=== PATIENT | female | born 1950 | race Caucasian/White ===

== ENCOUNTER 2019-05-08 15:15 | Emergency (ER) | payer MEDICARE ==
[~2019-05-08] VITALS: Ht 165.1 cm; Wt 90.0 kg
[2019-05-08 16:15] LABS: BASOPHILS % (AUTO) 0.9 % (0-1); EOSINOPHILS # (AUTO) 0.1 X10'3 (0-0.9); EOSINOPHILS % (AUTO) 2.2 % (0-6); HEMATOCRIT 34.9 % (35.0-45.0); HEMOGLOBIN 11.5 g/dl (12.0-16.0); LYMPHOCYTES # (AUTO) 1.9 X10'3 (1.1-4.8); LYMPHOCYTES % (AUTO) 37.4 % (21-51); MEAN CORPUSCULAR HEMOGLOBIN 27.5 PG (27.0-31.0); MEAN CORPUSCULAR HGB CONC 32.9 g/dL (33.0-36.5); MEAN CORPUSCULAR VOLUME 83.5 FL (78-98); MEAN PLATELET VOLUME 8.8 FL (7.4-10.4); MONOCYTES # (AUTO) 0.6 X10'3 (0-0.9); MONOCYTES % (AUTO) 11.5 % (2-12); NEUTROPHILS # (AUTO) 2.4 X10'3 (1.8-7.7); PLATELET COUNT 299 X10'3 (140-440); RED BLOOD COUNT 4.18 X10'6 (4.20-5.60); RED CELL DISTRIBUTION WIDTH 13.7 % (11.5-14.5)
[2019-05-08 16:24] LABS: PARTIAL THROMBOPLASTIN TIME 24 SECONDS (22-32)
[2019-05-08 16:27] LABS: ALANINE AMINOTRANSFERASE 29 U/L (12-78); ALBUMIN/GLOBULIN RATIO 1.3 (1.1-1.5); ALKALINE PHOSPHATASE 59 IU/L (46-116); ANION GAP 11 (8-16); ASPARTATE AMINO TRANSFERASE 22 U/L (10-37); BILIRUBIN,TOTAL 0.4 MG/DL (0.1-1.0); BLOOD UREA NITROGEN 27 MG/DL (7-18); CALCIUM 9.8 MG/DL (8.5-10.1); CHLORIDE 107 MMOL/L (99-107); GLUCOSE 88 MG/DL (70-104); POTASSIUM 4.4 MMOL/L (3.5-5.1); SODIUM 143 MMOL/L (135-145); eGFR 55 ML/MIN
--- NOTE | 2019-05-08 18:40 | NUR ---
lab at bedside for 3 hr trop - pt reports she is feeling better and that the MD told her if this trop came back WNL that she would go home tonight.
[2019-05-08 20:08] VITALS: BP 136/79
== END 2019-05-08 20:06 | disposition home or self-care (01) ==
LOC: ER 15:16
DX: R07.89 Other chest pain (principal); I10 Essential (primary) hypertension; Z88.8 Allergy status to other drugs, medicaments and biological substances
CPT/HCPCS: 36415; 71045; 80053; 84484; 85025; 85610; 85730; 93005; 99284

== ENCOUNTER 2019-05-12 08:38 | Day surgery (SDC) | payer MEDICARE ==
[~2019-05-12] VITALS: Ht 165.1 cm; Wt 99.7 kg
[2019-05-12] VITALS (10 sets, daily range): BP systolic 116–133; BP diastolic 48–75
[2019-05-12] MEDS ORDERED: diphenhydrAMINE 25mg capsule PO PRN (09:05)
[2019-05-12] MEDS ORDERED: normal saline 1,000 ML IV SCH (09:05)
[2019-05-12 09:54] LABS: BASOPHILS % (AUTO) 1.2 % (0-1); EOSINOPHILS # (AUTO) 0.1 X10'3 (0-0.9); EOSINOPHILS % (AUTO) 3.9 % (0-6); HEMATOCRIT 31.2 % (35.0-45.0); HEMOGLOBIN 10.2 g/dl (12.0-16.0); LYMPHOCYTES # (AUTO) 1.3 X10'3 (1.1-4.8); LYMPHOCYTES % (AUTO) 34.6 % (21-51); MEAN CORPUSCULAR HEMOGLOBIN 27.2 PG (27.0-31.0); MEAN CORPUSCULAR HGB CONC 32.6 g/dL (33.0-36.5); MEAN CORPUSCULAR VOLUME 83.5 FL (78-98); MEAN PLATELET VOLUME 8.2 FL (7.4-10.4); MONOCYTES # (AUTO) 0.4 X10'3 (0-0.9); MONOCYTES % (AUTO) 10.8 % (2-12); NEUTROPHILS # (AUTO) 1.8 X10'3 (1.8-7.7); NEUTROPHILS % (AUTO) 49.5 % (42-75); PLATELET COUNT 287 X10'3 (140-440); RED BLOOD COUNT 3.73 X10'6 (4.20-5.60); RED CELL DISTRIBUTION WIDTH 13.5 % (11.5-14.5); WHITE BLOOD COUNT 3.6 X10'3 (4.5-11.0)
[2019-05-12 10:03] LABS: ALBUMIN 3.5 G/DL (3.4-5.0); CALCIUM 9.6 MG/DL (8.5-10.1); TOTAL CARBON DIOXIDE 26.4 MMOL/L (24-32)
[2019-05-12] MEDS ORDERED: iohexol 350MG/ML 100ml bottle IV ONE (10:24)
[2019-05-12] MEDS ORDERED: LISI10TA4 PO (10:24)
[2019-05-12] MEDS ORDERED: iohexol 350 MG/ML 50ML vial IV ONE ×2 (10:24→11:18)
[2019-05-12] MEDS ORDERED: FEXO1TAB5 PO (10:24)
[2019-05-12] MEDS ORDERED: LIDOcaine 1% (10mg/ml)w/preservative injection 20ml MDV ONE (10:24)
[2019-05-12] MEDS ORDERED: fentaNYL/PF 50MCG/1 ML 2ML syringe ONE (10:24)
[2019-05-12] MEDS ORDERED: OMEP40CA13 PO (10:24)
[2019-05-12] MEDS ORDERED: RED600CA2 (10:24)
[2019-05-12] MEDS ORDERED: ASPI-1264 PO (10:24)
[2019-05-12] MEDS ORDERED: midazolam 2 mg/2 ml injection ONE ×2 (10:24→11:02)
[2019-05-12] MEDS ORDERED: MAGN400C PO (10:24)
[2019-05-12] MEDS ORDERED: NAPR220T67 PO (10:24)
[2019-05-12 10:37] LABS: ANION GAP 8 (8-16); BLOOD UREA NITROGEN 27 MG/DL (7-18); CHLORIDE 112 MMOL/L (99-107); GLUCOSE 113 MG/DL (70-104); POTASSIUM 5.4 MMOL/L (3.5-5.1); SODIUM 146 MMOL/L (135-145); eGFR 62 ML/MIN
--- NOTE | 2019-05-12 11:39 | NUR ---
IV NORMAL SALINE RATE NOW AT 200ML/HR . IV INFUSING WELL. PATIENT TO BE D/CLEMENTE HOME AT 1500 AND IV WILL BE DISCONTINUED.
[2019-05-12] MEDS ORDERED: ondansetron/PF 4mg/2ml inj IV PRN (12:10)
[2019-05-12] MEDS ORDERED: HYDROcodone/acetaminophen 10/325mg tab PO PRN (12:10)
[2019-05-12] MEDS ORDERED: normal saline 1000ml 1,000 ML IV SCH (12:10)
[2019-05-12] MEDS ORDERED: proCHLORperazine 10 MG/2 ml inj IV PRN (12:10)
[2019-05-12] MEDS ORDERED: HYDROcodone/acetaminophen 5mg/325mg tablet PO PRN (12:10)
== END 2019-05-12 15:00 | disposition home or self-care (01) ==
LOC: SSTAY O 08:38
PROVIDERS: ATTEND Internal Medicine Cardiovascular Disease
DX: R94.39 Abnormal result of other cardiovascular function study (principal); R07.89 Other chest pain; I25.110 Atherosclerotic heart disease of native coronary artery with unstable angina pectoris; I10 Essential (primary) hypertension; I47.1 Supraventricular tachycardia; Z79.899 Other long term (current) drug therapy; Z79.82 Long term (current) use of aspirin; Z85.828 Personal history of other malignant neoplasm of skin; Z98.890 Other specified postprocedural states; Z90.710 Acquired absence of both cervix and uterus; Z90.722 Acquired absence of ovaries, bilateral; Z72.89 Other problems related to lifestyle; Z88.8 Allergy status to other drugs, medicaments and biological substances
CPT/HCPCS: 36415; 80048; 83735; 85025; 85610; 93005; 93458; 99152; 99153; C1894; J1644; J2001; J2250; J3010; J7030; Q0163; Q9967; A4620; A6258; C1760

== ENCOUNTER 2019-07-03 13:30 | Inpatient (IN) | payer MEDICARE ==
[~2019-07-03] VITALS: Ht 162.6 cm; Wt 100.0 kg
[2019-07-03] VITALS (10 sets, daily range): BP systolic 112–138; BP diastolic 51–93
[~2019-07-03 13:30] MED LIST: ASPI-1264 PO; FEXO1TAB5 PO; LISI10TA4 PO; MAGN400C PO; NAPR220T67 PO; OMEP40CA13 PO; RED600CA2 PO
[2019-07-03 14:22] LABS: BASOPHILS # (AUTO) 0.1 X10'3 (0-0.2); BASOPHILS % (AUTO) 1.7 % (0-1); EOSINOPHILS # (AUTO) 0.2 X10'3 (0-0.9); EOSINOPHILS % (AUTO) 3.6 % (0-6); HEMATOCRIT 22.6 % (35.0-45.0); LYMPHOCYTES # (AUTO) 1.5 X10'3 (1.1-4.8); LYMPHOCYTES % (AUTO) 32.3 % (21-51); MEAN CORPUSCULAR HEMOGLOBIN 21.4 PG (27.0-31.0); MEAN CORPUSCULAR HGB CONC 30.8 g/dL (33.0-36.5); MEAN CORPUSCULAR VOLUME 69.6 FL (78-98); MEAN PLATELET VOLUME 7.7 FL (7.4-10.4); MONOCYTES # (AUTO) 0.5 X10'3 (0-0.9); MONOCYTES % (AUTO) 9.9 % (2-12); NEUTROPHILS # (AUTO) 2.4 X10'3 (1.8-7.7); NEUTROPHILS % (AUTO) 52.5 % (42-75); PLATELET COUNT 360 X10'3 (140-440); RED BLOOD COUNT 3.25 X10'6 (4.20-5.60); RED CELL DISTRIBUTION WIDTH 17.8 % (11.5-14.5); WHITE BLOOD COUNT 4.6 X10'3 (4.5-11.0)
[2019-07-03 14:33] LABS: PARTIAL THROMBOPLASTIN TIME 22 SECONDS (22-32)
[2019-07-03 14:38] LABS: ALANINE AMINOTRANSFERASE 20 U/L (12-78); ALBUMIN 3.7 G/DL (3.4-5.0); ALBUMIN/GLOBULIN RATIO 1.5 (1.1-1.5); ALKALINE PHOSPHATASE 66 IU/L (46-116); ANION GAP 8 (8-16); ASPARTATE AMINO TRANSFERASE 12 U/L (10-37); BILIRUBIN,TOTAL 0.4 MG/DL (0.1-1.0); BLOOD UREA NITROGEN 21 MG/DL (7-18); CALCIUM 9.2 MG/DL (8.5-10.1); CHLORIDE 107 MMOL/L (99-107); CREATININE 1.05 MG/DL (0.40-0.90); GLUCOSE 115 MG/DL (70-104); POTASSIUM 4.5 MMOL/L (3.5-5.1); SODIUM 142 MMOL/L (135-145); TOTAL CARBON DIOXIDE 27.5 MMOL/L (24-32); TOTAL PROTEIN 6.2 G/DL (6.4-8.2); eGFR 52 ML/MIN
[2019-07-03 14:45] LABS: PLATELET ESTIMATE NORMAL
[2019-07-03 14:46] LABS: ANISOCYTOSIS 1+; ELLIPTOCYTES FEW; MICROCYTOSIS 2+
[2019-07-03] MEDS ORDERED: pantoprazole 40 MG vial IV ONE (15:30)
[2019-07-03] MEDS ORDERED: FEXO180T94 PO (15:33)
[2019-07-03] MEDS ORDERED: ISOS30TA6 PO (15:33)
[2019-07-03] MEDS ORDERED: ESCI10TA54 PO (15:33)
[2019-07-03] MEDS ORDERED: magnesium Cl slow-release 64mg tablet PO PRN (16:50)
[2019-07-03] MEDS ORDERED: potassium CL 10mEq/100ml bag 100 ML IV PRN ×2 (16:50)
[2019-07-03] MEDS ORDERED: magnesium 2GM in 50ml NS 50 ML IV PRN (16:50)
[2019-07-03] MEDS ORDERED: potassium Cl 20 mEq SR tablet PO PRN ×2 (16:50)
[2019-07-03] MEDS ORDERED: magnesium 4gm in 100ml NS 100 ML IV PRN (16:50)
[2019-07-03] MEDS ORDERED: ondansetron/PF 4mg/2ml inj IV PRN (16:50)
[2019-07-03] MEDS: normal saline 1000ml 1,000 ML IV SCH (17:59)
--- NOTE | 2019-07-03 19:03 | NUR ---
PT TO PCU. SECOND UNIT OF BLOOD IS RUNNING CURRENTLY A 250ML/HR. PCU NURSE JD AWARE OF BLOOD RUNNING AND WILL ASUME CARE OF PT.
--- NOTE | 2019-07-03 19:03 | NUR ---
Received report from CTC OPERATOR. Patient to follow shortly.
--- NOTE | 2019-07-03 19:15 | NUR ---
Patient arrived to floor from ER via gurney. Patient ambulated to bed. 2nd unit of blood transfusing. Patient is alert and in no distress at this time.
[2019-07-03] MEDS: K and/or MAG REPLACEMENT MC SCH (20:00)
[2019-07-03] MEDS: pantoprazole 40 MG vial IV SCH (22:22)
[2019-07-04] VITALS (17 sets, daily range): BP systolic 102–158; BP diastolic 43–74
[2019-07-04] MEDS ORDERED: temazepam 15mg capsule PO ONE (00:35)
[2019-07-04] MEDS ORDERED: magnesium oxide 400mg tablet PO ONE (00:35)
[2019-07-04] MEDS: normal saline 1000ml 1,000 ML IV SCH ×5 (01:10→22:38)
[2019-07-04 05:41] LABS: BASOPHILS % (AUTO) 1.1 % (0-1); EOSINOPHILS # (AUTO) 0.2 X10'3 (0-0.9); EOSINOPHILS % (AUTO) 5.1 % (0-6); HEMATOCRIT 25.1 % (35.0-45.0); HEMOGLOBIN 8.1 g/dl (12.0-16.0); LYMPHOCYTES # (AUTO) 1.7 X10'3 (1.1-4.8); LYMPHOCYTES % (AUTO) 38.8 % (21-51); MEAN CORPUSCULAR HEMOGLOBIN 23.1 PG (27.0-31.0); MEAN CORPUSCULAR HGB CONC 32.2 g/dL (33.0-36.5); MEAN CORPUSCULAR VOLUME 71.8 FL (78-98); MEAN PLATELET VOLUME 8.1 FL (7.4-10.4); MONOCYTES # (AUTO) 0.6 X10'3 (0-0.9); MONOCYTES % (AUTO) 13.8 % (2-12); NEUTROPHILS # (AUTO) 1.8 X10'3 (1.8-7.7); NEUTROPHILS % (AUTO) 41.2 % (42-75); PLATELET COUNT 304 X10'3 (140-440); RED CELL DISTRIBUTION WIDTH 19.7 % (11.5-14.5); WHITE BLOOD COUNT 4.4 X10'3 (4.5-11.0)
[2019-07-04 05:47] LABS: ALBUMIN 3.1 G/DL (3.4-5.0); ANION GAP 6 (8-16); BLOOD UREA NITROGEN 18 MG/DL (7-18); CALCIUM 8.8 MG/DL (8.5-10.1); CHLORIDE 110 MMOL/L (99-107); GLUCOSE 103 MG/DL (70-104); MAGNESIUM 1.7 MG/DL (1.5-2.4); POTASSIUM 4.1 MMOL/L (3.5-5.1); SODIUM 143 MMOL/L (135-145); TOTAL CARBON DIOXIDE 27.5 MMOL/L (24-32); eGFR 55 ML/MIN
--- NOTE | 2019-07-04 06:34 | NUR ---
Patient in room PCU 3022. I have received report from DEBBY Bullock and had the opportunity to ask questions and assume patient care.
--- NOTE | 2019-07-04 06:40 | NUR ---
Problems reprioritized. Patient report given, questions answered & plan of care reviewed with Sharmin GUARDADO and Eddie GUARDADO.
[2019-07-04 06:52] LABS: ANISOCYTOSIS 2+; ELLIPTOCYTES FEW; MICROCYTOSIS 1+; PLATELET ESTIMATE NORMAL
[2019-07-04 06:53] LABS: POLYCHROMASIA 1+
[2019-07-04 06:54] LABS: HYPOCHROMASIA 1+
[2019-07-04] MEDS: K and/or MAG REPLACEMENT MC SCH ×2 (08:00→20:00)
[2019-07-04] MEDS ORDERED: METO-395 PO (08:43)
[2019-07-04] MEDS: pantoprazole 40 MG vial IV SCH ×2 (09:14→19:57)
--- NOTE | 2019-07-04 13:45 | NUR ---
Pt transported in down to GI lab.
[2019-07-04] MEDS ORDERED: fentaNYL/PF 50MCG/1 ML 2ML syringe ONE (14:17)
[2019-07-04] MEDS ORDERED: MIDAZolam 5mg/5ml vial ONE (14:17)
[2019-07-04] MEDS ORDERED: LIDOcaine Viscous 15ml cup ONE (14:18)
[2019-07-04] MEDS ORDERED: MIDAZolam 5mg/5ml vial IV ONE (15:05)
[2019-07-04] MEDS ORDERED: simethicone 40mg/0.6ml oral drops 30ml PO PRN (15:05)
[2019-07-04] MEDS ORDERED: LIDOcaine Viscous 15ml cup MM ONE (15:05)
[2019-07-04] MEDS ORDERED: fentaNYL/PF 50MCG/1 ML 2ML syringe IV ONE (15:10)
--- NOTE | 2019-07-04 15:20 | NUR ---
Patient returned to room form GI lab, tolerated procedure well, at bedside. Post op vitals initiated.
--- NOTE | 2019-07-04 17:06 | NUR ---
Called Dr. Carter about diet order. Clear liquids and NPO 0000.
--- NOTE | 2019-07-04 18:48 | NUR ---
Patient in room PCU 3022. I have received report from Kellie GUARDADO and had the opportunity to ask questions and assume patient care.
--- NOTE | 2019-07-04 18:54 | NUR ---
Problems reprioritized. Patient report given, questions answered & plan of care reviewed with DEBBY Sparrow.
[2019-07-04] MEDS ORDERED: PEG 3350/Na sulf,bicarb,Cl/KCl oral sol 4 liter bottle PO ONE (22:05)
[2019-07-05] VITALS (8 sets, daily range): BP systolic 110–158; BP diastolic 36–76
--- NOTE | 2019-07-05 02:00 | NUR ---
Patient finished entire Golytely prep by 0100 and is already having frequent bowel movements.
[2019-07-05] MEDS: normal saline 1000ml 1,000 ML IV SCH (04:05)
--- NOTE | 2019-07-05 06:00 | NUR ---
Patient in room PCU 3022. I have received report from Kyara GUARDADO and had the opportunity to ask questions and assume patient care.
--- NOTE | 2019-07-05 06:10 | NUR ---
Patient in room PCU 3022. I have received report from Kyara GUARDADO and had the opportunity to ask questions and assume patient care.
--- NOTE | 2019-07-05 06:18 | NUR ---
Problems reprioritized. Patient report given, questions answered & plan of care reviewed with Primo GUARDADO.
[2019-07-05 06:22] LABS: BASOPHILS % (AUTO) 1.1 % (0-1); EOSINOPHILS # (AUTO) 0.2 X10'3 (0-0.9); EOSINOPHILS % (AUTO) 5.5 % (0-6); HEMATOCRIT 26.2 % (35.0-45.0); HEMOGLOBIN 8.3 g/dl (12.0-16.0); LYMPHOCYTES # (AUTO) 1.6 X10'3 (1.1-4.8); LYMPHOCYTES % (AUTO) 38.5 % (21-51); MEAN CORPUSCULAR HEMOGLOBIN 22.9 PG (27.0-31.0); MEAN CORPUSCULAR HGB CONC 31.7 g/dL (33.0-36.5); MEAN CORPUSCULAR VOLUME 72.3 FL (78-98); MEAN PLATELET VOLUME 7.9 FL (7.4-10.4); MONOCYTES # (AUTO) 0.5 X10'3 (0-0.9); MONOCYTES % (AUTO) 12.9 % (2-12); NEUTROPHILS # (AUTO) 1.8 X10'3 (1.8-7.7); PLATELET COUNT 317 X10'3 (140-440); RED BLOOD COUNT 3.63 X10'6 (4.20-5.60); RED CELL DISTRIBUTION WIDTH 20.2 % (11.5-14.5); WHITE BLOOD COUNT 4.2 X10'3 (4.5-11.0)
[2019-07-05 06:36] LABS: ALBUMIN 3.3 G/DL (3.4-5.0); ANION GAP 7 (8-16); BLOOD UREA NITROGEN 12 MG/DL (7-18); BUN/CREATININE RATIO 12.1 (6.6-38.0); CALCIUM 8.7 MG/DL (8.5-10.1); CHLORIDE 111 MMOL/L (99-107); CREATININE 0.99 MG/DL (0.40-0.90); GLUCOSE 82 MG/DL (70-104); MAGNESIUM 1.6 MG/DL (1.5-2.4); POTASSIUM 4.1 MMOL/L (3.5-5.1); SODIUM 144 MMOL/L (135-145); TOTAL CARBON DIOXIDE 25.9 MMOL/L (24-32); eGFR 56 ML/MIN
[2019-07-05 07:29] LABS: ANISOCYTOSIS 3+; MICROCYTOSIS 1+; PLATELET ESTIMATE NORMAL
[2019-07-05 07:30] LABS: HYPOCHROMASIA 2+
[2019-07-05] MEDS: K and/or MAG REPLACEMENT MC SCH (08:00)
[2019-07-05] MEDS: pantoprazole 40 MG vial IV SCH (08:39)
[2019-07-05] MEDS ORDERED: fentaNYL/PF 50MCG/1 ML 2ML syringe ONE (11:07)
[2019-07-05] MEDS ORDERED: MIDAZolam 5mg/5ml vial ONE (11:07)
[2019-07-05] MEDS ORDERED: FERR324T4 PO (13:52)
--- NOTE | 2019-07-05 14:42 | NUR ---
Phoned new prescription to [facility], , per pt request.
--- NOTE | 2019-07-05 15:15 | NUR ---
Pt DC'd home with . IV removed, canula intact. New Medications called into [facility] pharmacy in [place] for pick-up. Pt stable upon DC and vitals WNL DC paperwork gone over with both Pt and . Allowed Pt and to ask questions concerning DC paperwork and then answer them. Pt stated that she will make a follow up appt with her PCP within 1-2 weeks. Pt's belongings gathered and sent with Pt. Pt wheeled down to lobby in wheelchair by nurse. Pt left with in private vehicle for home.
== END 2019-07-05 15:25 | disposition home or self-care (01) | DRG 812 ==
LOC: ER 13:31 → ED HOLD 16:59 → CMPBEDREQ 20:06 → PCU 3S 20:14
PROVIDERS: ADMIT Internal Medicine; ATTEND Internal Medicine
PROC: 30233N1 Transfusion of Nonautologous Red Blood Cells into Peripheral Vein, Percutaneous Approach (ICD-10-PCS; 2019-07-03)
PROC: 0DB68ZX Excision of Stomach, Via Natural or Artificial Opening Endoscopic, Diagnostic (ICD-10-PCS; 2019-07-04)
PROC: 0DJD8ZZ Inspection of Lower Intestinal Tract, Via Natural or Artificial Opening Endoscopic (ICD-10-PCS; principal; 2019-07-05)
DX: D50.9 Iron deficiency anemia, unspecified (principal); I10 Essential (primary) hypertension; K21.9 Gastro-esophageal reflux disease without esophagitis; K64.8 Other hemorrhoids; F32.9 Major depressive disorder, single episode, unspecified; D50.0 Iron deficiency anemia secondary to blood loss (chronic); K57.30 Diverticulosis of large intestine without perforation or abscess without bleeding; K29.70 Gastritis, unspecified, without bleeding; Z79.899 Other long term (current) drug therapy; Z88.8 Allergy status to other drugs, medicaments and biological substances
CPT/HCPCS: 36415; 43239; 45378; 80048; 80053; 83735; 85025; 85610; 85730; 86885; 86900; 86901; 86920; 87081; 88305; 88342; 96374; 99152; 99153; 99285; A4620; C9113; G0378; J2250; J3010; J7030; J7040; P9016